=== PATIENT | male | born 1965 | race Two or more races ===

== ENCOUNTER 2016-12-09 00:19 | Emergency (ER) | payer MEDICARE, OTHER ==
--- NOTE | 2016-12-09 00:25 | PDOC ---
History of Present Illness - General History Source: Patient Exam Limitations: No Limitations - History of Present Illness Initial Comments: 12/09/16 01:12 The patient is a 50-year-old male, with a significant past medical history of asthma, hypertension, hypercholesterolemia, who presents to the emergency department complaining of chest pain that began today (3 hours ago). The patient describes the pain as constant and sharp in nature. He reports generalized weakness in his left arm and discomfort in left shoulder. He reports associated palpitations, but denies diaphoresis and SOB. The patient states that upon onset of symptoms he feels dizzy and his vision is obscured. He states he also feels a tingling sensation on the right side of his chest. He reports a cough for 1-2 days and denies fever, chills, and headache. He reports recent contact with someone with the flu. Allergies: None reported. Past Surgical History: Lung resection Social History: Non-smoker. Denies alcohol or drug use. <Bridger Bullock - Last Filed: 12/09/16 02:09> <Joelle Burnett - Last Filed: 12/09/16 06:20> - General Stated Complaint: DIZZINESS, PALPITATIONS Time Seen by Provider: 12/09/16 00:24 Past History <Bridger Bullock - Last Filed: 12/09/16 02:09> - Past Medical History Asthma: Yes COPD: Yes Diabetes: No HTN: Yes Hypercholesterolemia: Yes - Surgical History Lung Surgery: Yes (rigth lung surgery removed a piece??) - Psycho/Social/Smoking Cessation Hx Anxiety: No Suicidal Ideation: No Smoking History: Former smoker Have you smoked in the past 12 months: No Number of Cigarettes Smoked Daily: 0 If you are a former smoker, when did you quit?: 10 YRS Hx Alcohol Use: Yes (SOCIAL) Drug/Substance Use Hx: No Substance Use Type: None Hx Substance Use Treatment: No <Joelle Burnett - Last Filed: 12/09/16 06:20> - Past Medical History Allergies/Adverse Reactions: Allergies Allergy/AdvReac Type Severity Reaction Status Date / Time No Known Allergies Allergy Verified 12/09/16 00:28 Home Medications: Ambulatory Orders Albuterol Sulfate Inhaler - [Ventolin HFA Inhaler -] 1 - 2 inh PO QID PRN Aspirin [Karan Chewable] 81 mg PO DAILY 12/09/16 Diltiazem HCl [Cartia Xt] 120 mg PO DAILY 12/09/16 Review of Systems - Review of Systems Able to Perform ROS?: Yes Comments:: 12/09/16 01:12 GENERAL/CONSTITUTIONAL: No fever or chills. HEAD, EYES, EARS, NOSE AND THROAT: +Change in vision. No ear pain or discharge. No sore throat. CARDIOVASCULAR: +Chest pain. No shortness of breath. RESPIRATORY: No cough, wheezing, or hemoptysis. GASTROINTESTINAL: No nausea, vomiting, diarrhea or constipation. GENITOURINARY: No dysuria, frequency, or change in urination. MUSCULOSKELETAL: +Discomfort in left shoulder. +Weakness in left arm. No joint or muscle swelling. No neck or back pain. SKIN: No rash NEUROLOGIC: No headache, vertigo, loss of consciousness, or change in strength/ sensation. ENDOCRINE: No increased thirst. No abnormal weight change. HEMATOLOGIC/LYMPHATIC: No anemia, easy bleeding, or history of blood clots. ALLERGIC/IMMUNOLOGIC: No hives or skin allergy. <Bridger Bullock - Last Filed: 12/09/16 02:09> *Physical Exam - Vital Signs Last Vital Signs Temp Pulse Resp BP Pulse Ox 97.9 F 131 H 21 104/72 96 12/09/16 00:28 12/09/16 00:28 12/09/16 00:28 12/09/16 00:28 12/09/16 00:28 - Physical Exam Comments: 12/09/16 01:13 GENERAL: The patient is awake, alert, and fully oriented, in no acute distress. HEAD: Normal with no signs of trauma. EYES: Pupils equal, round and reactive to light, extraoccular movements intact, sclera anticteric, conjunctiva clear with no pallor. ENT: Ears normal, nares patent, oropharynx clear without exudates. Moist mucous membranes. NECK: Normal range of motion, supple without lymphadenopathy, JVD, or masses. LUNGS: Breath sounds equal, clear to auscultation bilaterally. No wheeze/ crackles. HEART: +Irregular rate (Atrial fibrillation). Normal S1 and S2 without murmur or rub. ABDOMEN: Soft/nontender/nondistended. BS wnl. No guarding or rebound. No palpable masses. No hepatosplenomegaly. EXTREMITIES: Normal range of motion, no edema. No clubbing or cyanosis. No cords, erythema, or tenderness. NEUROLOGICAL: Cranial nerves II through XII grossly intact. Normal speech, normal gait. PSYCH: Normal mood, normal affect. SKIN: +Old scar on posterior left back from lung resection. Warm, Dry, normal turgor, or no rashes noted. <Bridger Bullock - Last Filed: 12/09/16 02:09> ED Treatment Course - LABORATORY CBC & Chemistry Diagram: 12/09/16 00:40 12/09/16 00:40 - ADDITIONAL ORDERS Additional order review: Laboratory Results 12/09/16 00:40 INR 1.12 12/09/16 00:40 RBC 5.43 MCV 83.0 MCHC 33.2 RDW 13.7 MPV 9.2 Neutrophils % 56.4 Lymphocytes % 31.8 D Monocytes % 7.7 Eosinophils % 3.2 Basophils % 0.9 - Medications Given in the ED: ED Medications Discontinued Medications Generic Name Dose Route Start Last Admin Trade Name Cj PRN Reason Stop Dose Admin Diltiazem HCl 10 mg 12/09/16 00:45 12/09/16 00:45 Cardizem Injection - IVPUSH 12/09/16 00:46 10 mg NOW ONE Administration <Bridger Bullock - Last Filed: 12/09/16 02:09> - LABORATORY CBC & Chemistry Diagram: 12/09/16 00:40 12/09/16 00:40 <Joelle Burnett - Last Filed: 12/09/16 06:20> Medical Decision Making - Medical Decision Making 12/09/16 02:[address] King at 02:05. <Bridger Bullock - Last Filed: 12/09/16 02:09> - Medical Decision Making 12/09/16 01:54 Patient Name: Giovany Cmobs THIS IS A PRELIMINARYREPORT FROM IMAGING GALLERY DIRECTOR EXAM: CT brain without contrast IMAGES: 70 EXAM DATE AND TIME: 2016-12-09 01:33:12.0 REASON FOR EXAM: Left shoulder Fatigue COMPARISON: No FINDINGS: Normal brain. No acute intracranial abnormality. No bleed. No visible infarct or mass. THIS DOCUMENT HAS BEEN ELECTRONICALLY SIGNED 12/09/16 01:57 Pt's labs are normal. HR came down to the 70s. He is still in afib and he will be sent home with aspirin and dilt. I spoke to cardiology steam bone press tender Dr. Yang who agrees that given pt's low CHADS score, it is reasonable that pt not be placed on coumadin if he is unwilling to follow his blood tests and follow up with cardiology. 12/09/16 02:19 Pt has been asked to follow with [facility] where he has an appointment that had been previously scheduled for later this month. 12/09/16 06:16 Pt came with rapid afib. He is being treated by a cardiology PA at [facility] with Diltiazem 120mg daily. He takes the meds. Pt refuses blood thinners as he feels he cant afford the meds and the lab hecks that come with coumadin. He was previously found to be CHADS2 score of 1 and as a result at low risk for stroke, which is compatible with asa therapy to inactivate platelets and reduce clotting. Pt's labs are normal in the ER and his head CT also doesn't demonstrate any findings, he states that he gets obscure vision whenever he palpitates and he feels left arm pain and generalized fatigue. Pt asked to follow at the cardioclinics at [facility] as previously scheduled. Stable for d/c home with his . 12/09/16 06:20 EKG1: rapid afib HR 131bpm EKG2: afib HR 69 bpm <Joelle Burnett - Last Filed: 12/09/16 06:20> *DC/Admit/Observation/Transfer - Attestations Scribe Attestion: 12/09/16 01:13 Documentation prepared by Bridger Bullock, acting as biomedical electronics technician for Joelle Burnett MD. <Bridger Bullock - Last Filed: 12/09/16 02:09> - Discharge Dispostion Admit: No <Joelle Burnett - Last Filed: 12/09/16 06:20> Diagnosis at time of Disposition: Rapid atrial fibrillation - Discharge Dispostion Disposition: HOME Condition at time of disposition: Stable - Referrals Referrals: STAFF,NOT ON [Primary Care Provider] - - Patient Instructions Printed Discharge Instructions: DI for Arrhythmias, DI for Atrial Fibrillation
[2016-12-09 00:29] VITALS: TEMP 97.9; BMI 31.3
[2016-12-09] MEDS ORDERED: dilTIAZem HCL 50 MG/10 ML - 10 ML VIAL ONE (00:39)
[2016-12-09] MEDS ORDERED: dilTIAZem HCL 50 MG/10 ML - 10 ML VIAL IVPUSH ONE (00:45)
[2016-12-09 00:48] LABS: BASOPHIL 0.9 % (0-2.0); EOSINOPHIL 3.2 % (0-4.5); MCH 27.5 pg (25.7-33.7); MCHC 33.2 g/dl (32.0-35.9); MEAN PLT VOLUME 9.2 fl (7.5-11.1); NEUTROPHILS 56.4 % (42.8-82.8); PLATELET COUNT 245 K/MM3 (134-434); RDW 13.7 % (11.9-15.9)
[2016-12-09 01:07] LABS: INR 1.12 (0.82-1.09); PROTHROMBIN TIME (PATIENT) 12.4 SEC (9.98-11.88)
[2016-12-09 01:10] LABS: ALBUMIN 4.4 g/dl (3.4-5.0); BILIRUBIN,TOTAL 0.5 mg/dL (0.2-1.0); CALCIUM 9.2 mg/dL (8.5-10.1); CREATININE 1.4 mg/dL (0.7-1.3); TOT PROT 8.1 g/dl (6.4-8.2)
[2016-12-09 01:13] LABS: TROPONIN I 0.02 ng/ml (0.00-0.05)
[2016-12-09] MEDS ORDERED: SODIUM CHLORIDE 0.9% 1000 ML INFUS.BAG IV ONE (01:24)
[2016-12-09] MEDS ORDERED: SODIUM CHLORIDE 0.9% 500 ML INFUS.BAG IV ONE (01:55)
[2016-12-09] MEDS ORDERED: dilTIAZem HCL 60 MG TABLET (FP) PO ONE ×2 (02:07→02:19)
[2016-12-09] MEDS ORDERED: dilTIAZem HCL 60 MG TABLET (FP) ONE (02:35)
[2016-12-09 02:43] VITALS: BP 111/91; PULSE 73
--- NOTE | 2016-12-09 11:24 | EKG ---
Test Reason : Blood Pressure : / mmHG Vent. Rate : 131 BPM Atrial Rate : 187 BPM P-R Int : 000 ms QRS Dur : 090 ms QT Int : 316 ms P-R-T Axes : 000 056 -24 degrees QTc Int : 466 ms ATRIAL FIBRILLATION WITH RAPID VENTRICULAR RESPONSE MINIMAL VOLTAGE CRITERIA FOR LVH, MAY BE NORMAL VARIANT NONSPECIFIC T WAVE ABNORMALITY ABNORMAL ECG WHEN COMPARED WITH ECG OF 31-OCT-2016 14:49, VENT. RATE HAS INCREASED BY 46 BPM Confirmed by KIM SHEN MD ([id number]) on 12/09/2016 11:23:59 AM Referred By: Confirmed By:KIM SHEN MD
--- NOTE | 2016-12-09 23:53 | EKG ---
Test Reason : Blood Pressure : / mmHG Vent. Rate : 069 BPM Atrial Rate : 187 BPM P-R Int : 000 ms QRS Dur : 092 ms QT Int : 386 ms P-R-T Axes : 000 056 013 degrees QTc Int : 413 ms ATRIAL FIBRILLATION NONSPECIFIC T WAVE ABNORMALITY ABNORMAL ECG WHEN COMPARED WITH ECG OF 09-DEC-2016 00:26, VENT. RATE HAS DECREASED BY 62 BPM Confirmed by KIM SHEN MD ([id number]) on 12/09/2016 11:53:12 PM Referred By: Confirmed By:KIM SHEN MD
== END 2016-12-09 02:44 | disposition home or self-care (01) ==
LOC: JER 00:19
PROC: 3E033GC Introduction of Other Therapeutic Substance into Peripheral Vein, Percutaneous Approach (ICD-10-PCS; principal; 2016-12-09)
DX: I48.91 Unspecified atrial fibrillation (principal); I10 Essential (primary) hypertension; E78.00 Pure hypercholesterolemia, unspecified; J44.9 Chronic obstructive pulmonary disease, unspecified; J45.909 Unspecified asthma, uncomplicated
CPT/HCPCS: 36415; 70450-TC; 71010-TC; 80053; 82550; 82553; 84484; 85025; 85610; 93005; 93010; 99284-25

== ENCOUNTER 2017-02-05 09:19 | Inpatient (IN) | payer OTHER ==
--- NOTE | 2017-02-05 09:33 | PDOC ---
History of Present Illness - General History Source: Patient Exam Limitations: No Limitations - History of Present Illness Initial Comments: 02/05/17 09:53 The patient is a 51 year old male, with a significant past medical history of asthma, HTN, COPD, a-fib, and hypercholesterolemia, who presents to the emergency department with SOB and right sided chest pain for about an hour. He reports waking up with the sudden onset of chest pain. He describes his pain as sharp, ranking his pain a 10/10 in pain intensity. He reports having this pain a week ago and going to [facility] ER where he had a chest tube put in for 24 hours. He reports since his discharge feeling his normal baseline, until this morning when he developed chest pain. He denies having a pulmonary doctor that he visits regularly. He denies any recent fevers, chills, headache or dizziness. He denies any recent nausea, vomit, diarrhea or constipation. He denies any recent dysuria, frequency, urgency or hematuria. Allergies: NKA Past surgical history: Right lung resection (secondary to COPD exacerbation 2008 ). Social History: Former smoker. Social EtOH and denies drug use. PCP: Not on Staff. <Juan Pablo Jeffery - Last Filed: 02/05/17 12:36> - General History Source: Patient Exam Limitations: No Limitations <Sue Noonan - Last Filed: 02/06/17 19:27> - General Chief Complaint: Shortness of Breath Stated Complaint: Shortness of Breath Time Seen by Provider: 02/05/17 09:28 Past History <Juan Pablo Jeffery - Last Filed: 02/05/17 12:36> - Past Medical History Asthma: Yes Cardiac Disorders: Yes (a fib) COPD: Yes Diabetes: No HTN: Yes Hypercholesterolemia: Yes - Surgical History Lung Surgery: Yes (rigth lung surgery removed a piece??) - Psycho/Social/Smoking Cessation Hx Anxiety: No Suicidal Ideation: No Smoking History: Former smoker Have you smoked in the past 12 months: No Number of Cigarettes Smoked Daily: 0 If you are a former smoker, when did you quit?: 10 YRS Hx Alcohol Use: Yes (SOCIAL) Drug/Substance Use Hx: No Substance Use Type: None Hx Substance Use Treatment: No <Sue Noonan - Last Filed: 02/06/17 19:27> - Past Medical History Allergies/Adverse Reactions: Allergies Allergy/AdvReac Type Severity Reaction Status Date / Time No Known Allergies Allergy Verified 02/05/17 09:53 Home Medications: Ambulatory Orders Albuterol Sulfate Inhaler - [Ventolin HFA Inhaler -] 1 - 2 inh PO QID PRN Aspirin [Karan Chewable] 81 mg PO DAILY 12/09/16 Diltiazem HCl [Cartia Xt] 120 mg PO DAILY 12/09/16 Apixaban [Eliquis -] 5 mg PO BID 02/05/17 Review of Systems - Review of Systems Able to Perform ROS?: Yes Comments:: 02/05/17 09:51 GENERAL/CONSTITUTIONAL: No: fever, chills, weakness, loss of appetite. HEAD, EYES, EARS, NOSE AND THROAT: No: change in vision, ear pain, discharge, sore throat, throat swelling. CARDIOVASCULAR:+chest pain. No: lightheadedness, palpitations, syncope RESPIRATORY: +SOB. No: cough, wheezing, hemoptysis, stridor. GASTROINTESTINAL: No: nausea, vomiting, diarrhea, abdominal cramping, rectal bleeding, constipation. GENITOURINARY: No: dysuria, hematuria, frequency, urgency, flank pain. MUSCULOSKELETAL: No: back pain, neck pain, joint pain, muscle swelling or pain SKIN : No: lesions, pallor, rash or easy bruising. NEUROLOGIC: No: headache, vertigo, paresthesias, weakness ENDOCRINE: No: unexplained weight gain or loss HEMATOLOGIC/LYMPHATIC: No: anemia, easy bleeding, swelling nodes. <Juan Pablo Jeffery - Last Filed: 02/05/17 12:36> *Physical Exam - Physical Exam Comments: 02/05/17 09:52 GENERAL: The patient is in no acute distress. HEAD: Normal with no signs of trauma. EYES: PERRLA, EOMI, sclera anicteric, conjunctiva clear. ENT: Ears normal, nares patent, oropharynx clear without exudates. Moist mucous membranes. NECK: Normal range of motion, supple without lymphadenopathy, JVD, or masses. LUNGS: +tachypneic. Decreased breath sounds right side. No wheezes, and no crackles. HEART: Regular rate and rhythm, normal S1 and S2 without murmur, rub or gallop. ABDOMEN: Soft, nontender, normoactive bowel sounds. No guarding, no rebound. No masses palpable. EXTREMITIES: Normal range of motion, no edema. No clubbing or cyanosis. No erythema, or tenderness. NEUROLOGICAL: Cranial nerves II through XII grossly intact. Normal speech. No focal neurological deficits. MUSCULOSKELETAL: Back non-tender to palpation, no CVA tenderness SKIN: Warm, Dry, normal turgor, no rashes or lesions noted. <Juan Pablo Jeffery - Last Filed: 02/05/17 12:36> Heart Score/ECG Review #1 ECG reviewed & interpreted by me at: 10:06 02/05/17 10:06 Twelve-lead EKG was performed and reviewed by me. There is normal sinus rhythm with a normal rate of 80 bpm. The axis is normal. The intervals are normal - pr : 154ms, QRS:84ms, QTc:422ms. There are no ST elevations or depressions. T wave inversion III, aVF, v3-v4 <Sue Noonan - Last Filed: 02/06/17 19:27> ED Treatment Course - LABORATORY CBC & Chemistry Diagram: 02/05/17 09:55 02/05/17 09:55 - RADIOLOGY Radiograph Interpretation: 02/05/17 10:54 CHEST X-RAY impressions reported by : Increased interstitial markings bilaterally which have chronicity based on correlation to old studies, no pleural effusion or pneumothorax is seen. Clinical correlation. No superimposed acute pneumonia or edema identified, clinical correlation for history of interstitial fibrosis. 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 No pleural effusion. There are no signs of right heart strain. PE is demonstrated in the right main pulmonary artery and extending into the segemental and subsegmntal branch vessels which are occluded, there are bronchial artery collateral vessels identified. <Juan Pablo Jeffery - Last Filed: 02/05/17 12:36> - LABORATORY CBC & Chemistry Diagram: 02/05/17 09:55 02/05/17 09:55 <Sue Noonan - Last Filed: 02/06/17 19:27> Medical Decision Making - Medical Decision Making 02/05/17 11:45 Call made to , awaiting call back. 02/05/17 11:46 Call back from , case discussed. <Juan Pablo Jeffery - Last Filed: 02/05/17 12:36> - Critical Care Time Total Critical Care Time (minutes): 60 Critical Care Statement: The care of this patient involved high complexity decision making to prevent further life threatening deterioration of the patient 's condition and/or to evalute & treat vital organ system(s) failure or risk of failure. - Medical Decision Making 02/05/17 09:33 A portion of this note was documented by scribe services under my direction. I have reviewed the details of the note, within reason, and agree with the documentation with the following case summary and management plan written by me. Nursing documentation reviewed and incorporated into medical decision making 02/05/17 09:57 This is a 51-year-old male with a history of hypertension, hyperlipidemia, likely paroxysmal A. fib? According to chart), history of COPD s/p right lung resection in 2008 for COPD, h/o pneumothorax last week, s/p pigtail cathether at [facility], told that he might need a valve? Pt awoke with severe right sided chest pain, difficulty taking a deep breath No cough No fevers or chills No back pain No recent travel No chest wall trauma No left sided chest pain Pt states he was discharged from the hospital 5 days ago and had felt well up until this morning On examination Right lower chest pain Decreased breath sounds right side No abdominal tenderness Will do: Portable chest x ray Will do basic labs Will place on O2 Will give moprhine for pain 02/05/17 10:07 CXR: pneumothorax, air at the base of the lung cavity 02/05/17 11:[address] Shah who reviewed pt CT Likely loculated pneumothorax Pt continues to have pain 02/05/17 11:56 02/05/17 11:57 Laboratory Tests 02/05/17 02/05/17 02/05/17 09:20 09:55 09:55 WBC 8.0 Hgb 13.9 Hct 40.6 Plt Count 179 D Neutrophils % 51.8 Lymphocytes % 36.7 INR 1.20 H BUN 21 H Creatinine 1.0 D Creatine Kinase 107 Troponin I < 0.02 CT demonstrates Right pulmonary embolism Pt is on Eliquis which he states he has been taking Pt given dilaudid 0.5 for pain Pt seen in the ER by Dr. Shah Pt would be better served at [facility] given his complicated pulmonary history and his recent surgery? Pt was discharged on NOAC Will start heparin, no bolus Will continue to monitor closely clinical impression: PULMONARY EMBOLISM <Sue Noonan - Last Filed: 02/06/17 19:27> *DC/Admit/Observation/Transfer - Attestations Scribe Attestion: 02/05/17 09:51 Documentation prepared by Juan Pablo Jeffery, acting as medical collections representative for Sue Noonan MD. <Juan Pablo Jeffery - Last Filed: 02/05/17 12:36> - Discharge Dispostion Admit: Yes <Sue Noonan - Last Filed: 02/06/17 19:27> Diagnosis at time of Disposition: SOB (shortness of breath), Pulmonary embolism Chest pain Qualifiers: Chest pain type: other chest pain Qualified Code(s): R07.89 - Other chest pain - Discharge Dispostion Disposition: TRANSFER ACUTE CARE/OTHER HOSP Condition at time of disposition: Fair
[2017-02-05 09:53] VITALS: BMI 31.0
[2017-02-05] MEDS ORDERED: morphine CARPU-JECT 4 MG/1 ML DISP.SYRIN IVPUSH ONE (09:53)
[2017-02-05 10:09] LABS: MCH 28.6 pg (25.7-33.7); MCHC 34.1 g/dl (32.0-35.9); MEAN CELL VOLUME 83.9 fl (80-96); MEAN PLT VOLUME 9.5 fl (7.5-11.1); NEUTROPHILS 51.8 % (42.8-82.8); PLATELET COUNT 179 K/MM3 (134-434); RDW 13.8 % (11.9-15.9)
[2017-02-05] MEDS ORDERED: morphine CARPU-JECT 4 MG/1 ML DISP.SYRIN ONE (10:09)
[2017-02-05 10:29] LABS: ALBUMIN 4.1 g/dl (3.4-5.0); ANION GAP 6 (8-16); BILIRUBIN,TOTAL 0.4 mg/dL (0.2-1.0); CALCIUM 8.9 mg/dL (8.5-10.1); CO2 30 mmol/L (21-32); GLUCOSE,RANDOM 99 mg/dL (74-106); SGOT/AST 16 U/L (15-37); SGPT/ALT 29 U/L (12-78); TOT PROT 7.7 g/dl (6.4-8.2)
[2017-02-05 10:31] LABS: ALK PHOS 89 U/L (45-117); TROPONIN I < 0.02 ng/ml (0.00-0.05)
[2017-02-05 11:02] LABS: INR 1.2 (0.82-1.09); PROTHROMBIN TIME (PATIENT) 13.2 SEC (9.98-11.88)
--- NOTE | 2017-02-05 11:04 | EKG ---
Test Reason : Blood Pressure : / mmHG Vent. Rate : 080 BPM Atrial Rate : 080 BPM P-R Int : 154 ms QRS Dur : 084 ms QT Int : 366 ms P-R-T Axes : 051 058 -16 degrees QTc Int : 422 ms NORMAL SINUS RHYTHM NONSPECIFIC T WAVE ABNORMALITY ABNORMAL ECG WHEN COMPARED WITH ECG OF 09-DEC-2016 02:20, SINUS RHYTHM HAS REPLACED ATRIAL FIBRILLATION Confirmed by ROXANA DIAZ MD ([id number]) on 02/05/2017 11:03:39 AM Referred By: Confirmed By:ROXANA DIAZ MD
[2017-02-05] MEDS ORDERED: HYDROmorphone HCL CARPU-JECT 1 MG/1 ML DISP.SYRIN IVPB ONE ×2 (11:55→16:37)
[2017-02-05] MEDS ORDERED: HYDROmorphone HCL CARPU-JECT 1 MG/1 ML DISP.SYRIN ONE ×2 (12:05→16:49)
--- NOTE | 2017-02-05 13:21 | PDOC ---
ED Treatment Course - LABORATORY CBC & Chemistry Diagram: 02/05/17 09:55 02/05/17 09:55 - ADDITIONAL ORDERS Additional order review: Laboratory Results 02/05/17 02/05/17 02/05/17 09:55 09:20 09:20 INR 1.20 H Sodium 142 Potassium 3.6 Chloride 106 Carbon Dioxide 30 Anion Gap 6 L BUN 21 H Creatinine 1.0 D Creat Clearance w eGFR > 60 Random Glucose 99 D Calcium 8.9 Total Bilirubin 0.4 AST 16 ALT 29 Alkaline Phosphatase 89 Creatine Kinase 107 Troponin I < 0.02 Total Protein 7.7 Albumin 4.1 Blood Type A NEGATIVE Antibody Screen Negative 02/05/17 09:55 RBC 4.85 MCV 83.9 MCHC 34.1 RDW 13.8 MPV 9.5 Neutrophils % 51.8 Lymphocytes % 36.7 Monocytes % 7.5 Eosinophils % 3.0 Basophils % 1.0 - RADIOLOGY Radiology Studies Ordered: Category Date Time Status CHEST CTA [CT] Stat CT Scan 02/05/17 10:50 Completed CHEST X-RAY PORTABLE* [RAD] Stat Radiology 02/05/17 09:42 Completed - Medications Given in the ED: ED Medications Discontinued Medications Generic Name Dose Route Start Last Admin Trade Name Freq PRN Reason Stop Dose Admin Hydromorphone HCl 0.5 mg 02/05/17 11:55 02/05/17 12:06 Dilaudid Injection - IVPB 02/05/17 11:56 0.5 mg NOW ONE Administration Morphine Sulfate 4 mg 02/05/17 09:53 02/05/17 10:10 Morphine Injection - IVPUSH 02/05/17 09:54 4 mg ONCE ONE Administration Medical Decision Making - Medical Decision Making 02/05/17 13:18 Will transfer pt to [facility] Case reviewed with Dr. Pineda Pt transfer to [facility] telemetry Will keep on showcase trimmer *DC/Admit/Observation/Transfer Diagnosis at time of Disposition: SOB (shortness of breath), Pulmonary embolism Chest pain Qualifiers: Chest pain type: other chest pain Qualified Code(s): R07.89 - Other chest pain - Discharge Dispostion Disposition: TRANSFER ACUTE CARE/OTHER HOSP Condition at time of disposition: Fair - Transfer to Acute Care Facility Receiving Facility: [facility]
--- NOTE | 2017-02-05 13:36 | CON.PULM ---
Consult Consult Specialty:: PULM/CCM Referred by:: ER Reason for Consultation:: Abnormal CT chest - History of Present Illness Chief Complaint: Right sided CP / SOB History of Present Illness: 51 M, significant past medical history of (?) asthma, (?) COPD, HTN, AFib on Coumadin, and HPL. Patient was admitted to [facility] in 2008. He had a right thoracotomy with lung resection. He was told that he had severe COPD. Last Saturday he was admitted to [facility] for SOB and right sided chest discomfort. He had a right ACW chest tube placed. He was just discharged last . Returns for SOB and right CP. CT: Extensive fibrosis and possible loculated PTX on the right. A PE is noted as well. Patient is currently hemodynamically stable and O2 saturation is 95% on supplemental NC. - History Source History Provided By: Patient Limitations to Obtaining History: No Limitations - Past Medical History Cardio/Vascular: Yes: HTN, Hyperlipdemia Pulmonary: Yes: Asthma, COPD, Other (partial lung resection for infection) - Alcohol/Substance Use Hx Alcohol Use: Yes (SOCIAL) - Smoking History Smoking history: Former smoker Have you smoked in the past 12 months: No Aproximately how many cigarettes per day: 0 If you are a former smoker, when did you quit?: 10 YRS - Social History ADL: Independent History of Recent Travel: No Home Medications - Allergies Allergies/Adverse Reactions: Allergies Allergy/AdvReac Type Severity Reaction Status Date / Time No Known Allergies Allergy Verified 02/05/17 09:53 - Home Medications Home Medications: Ambulatory Orders Albuterol Sulfate Inhaler - [Ventolin HFA Inhaler -] 1 - 2 inh PO QID PRN Aspirin [Karan Chewable] 81 mg PO DAILY 12/09/16 Diltiazem HCl [Cartia Xt] 120 mg PO DAILY 12/09/16 Apixaban [Eliquis -] 5 mg PO BID 02/05/17 Physical Exam Vital Sings: Vital Signs Temperature 98.6 F 02/05/17 12:00 Pulse Rate 80 02/05/17 12:00 Respiratory Rate 22 02/05/17 12:00 Blood Pressure 137/96 02/05/17 12:00 O2 Sat by Pulse Oximetry (%) 100 02/05/17 12:00
[2017-02-05] MEDS ORDERED: HEPARIN - 25,000 UNIT in SODIUM CHLORIDE 495 ML IV SCH (13:45)
--- NOTE | 2017-02-05 13:49 | CONSULT ---
Consultation: REQUESTING PROVIDER: CONSULT REQUEST: We have been asked to medically evaluate this patient for sob, chest pain. HISTORY OF PRESENT ILLNESS: This is a 51 yo M with PMH of COPD s/p partial R lung resection 2008 due to exacerbation, asthma, a-fib on eliquis, HLD and HTN, who presents with sudden onset of 10/10 sharp R sided chest pain and sob this AM as he woke up. He had the same exact symptoms last Saturday, at which time he was hospitalized in [facility] until , during which time he was found to have a pneumo and had a R sided pigtail placed for 5 days. It was removed 5 hours before his d/c last at which time patient felt at his baseline. He continued to feel well until this morning. He has a scheduled apt with his paleontologist from [facility] this Sat. According to patient, he was told that most likely his lung will recollapse and then he will require a valve placed. Patient is a past smoker but only smoked 3 cig/day for a few years. He doesnt know whether he was tested fro alpha antitrypsin deficiency but he denies family history of pulmonary disease. 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 At baseline he does not use supplemental O2. He denies hemoptysis, LE pain or edema. He denies abd pain, diarrhea or dysuria. REVIEW OF SYSTEMS: CONSTITUTIONAL: Absent: fever, chills, malaise, loss of appetite, weight change HEENT: Absent: rhinorrhea, nasal congestion, throat pain, visual changes CARDIOVASCULAR: Absent: syncope, palpitations, lightheadedness, peripheral edema RESPIRATORY: Absent: orthopnea, wheezing, stridor, hemoptysis GASTROINTESTINAL: Absent: abdominal pain, abdominal distension, nausea, vomiting, diarrhea GENITOURINARY: Absent: dysuria MUSCULOSKELETAL: Absent: myalgia, arthralgia SKIN: Absent: rash, itching, pallor HEMATOLOGIC/IMMUNOLOGIC: Absent: frequent infections ENDOCRINE: Absent: heat intolerance, cold intolerance NEUROLOGIC: Absent: headache, focal weakness or paresthesias PSYCHIATRIC: Absent: anxiety, depression PHYSICAL EXAMINATION Vital Signs - 24 hr 02/05/17 12:00 Temperature 98.6 F Pulse Rate [ 80 Left Radial] Respiratory 22 Rate Blood Pressure 137/96 [Right Arm] O2 Sat by Pulse 100 Oximetry (%) GENERAL: Awake, alert, and fully oriented, in no acute distress. HEAD: Normal with no signs of trauma. EYES: Pupils equal, round and reactive to light, extraocular movements intact, sclera anicteric, conjunctiva clear. EARS, NOSE, THROAT: Moist mucous membranes. NECK:supple without JVD LUNGS: R lung absent breath sounds except for peribronchial middle segment, L lung crackles HEART: Regular rate and rhythm, normal S1 and S2 ABDOMEN: Soft, nontender, not distended, normoactive bowel sounds MUSCULOSKELETAL: No CVA tenderness. UPPER EXTREMITIES: 2+ pulses, No peripheral edema. LOWER EXTREMITIES: 2+ pulses, No calf tenderness. No peripheral edema. NEUROLOGICAL: Cranial nerves II-XII grossly intact. Normal speech. PSYCHIATRIC: Cooperative. Good eye contact. Appropriate mood and affect. SKIN: Warm, dry ASSESSMENT/PLAN: This is a 51 yo M with PMH of COPD s/p partial R lung resection 2008 due to exacerbation, asthma, a-fib on eliquis, HLD and HTN, who presents with sudden onset of 10/10 sharp R sided chest pain and sob this AM as he woke up. in [facility] 1 w ago due to R pneumothorax, pig tail placed/removed. Acute respiratory distress -possible PE, nontension Pneumothorax vs large air blebs -CXR shows new R sided pneumo vs large bleb (deep sulcus sign), not present in december -CTA chest show subacute large R pulm artery embolish vs collapsed artery, large R sided pulmonary blebs vs pneumo with lung adhesions to lim, multiple smaller L sided blebs. -hemodynamically stable -EKG nonspecific ST changes -pain controlled -recommend emergent transfer to [facility]/contact pulm and CT surgery team previously involved with patient. -Recommend VATS -recommend genetic workup including alpha 1 antitrypsin -supplemental O2 A fib -continue eliquis HTN -continue home meds HLD -continue home meds Dispo: We will continue to follow the patient. Thank you for this consultative opportunity. Problem List - Problems (1) Chest pain Code(s): R07.9 - CHEST PAIN, UNSPECIFIED Qualifiers: Chest pain type: other chest pain Qualified Code(s): R07.89 - Other chest pain; R07.8 - Other chest pain (2) Pulmonary embolism Code(s): I26.99 - OTHER PULMONARY EMBOLISM WITHOUT ACUTE COR PULMONALE (3) SOB (shortness of breath) Code(s): R06.02 - SHORTNESS OF BREATH (4) Rapid atrial fibrillation Code(s): I48.91 - UNSPECIFIED ATRIAL FIBRILLATION (5) HLD (hyperlipidemia) Code(s): E78.5 - HYPERLIPIDEMIA, UNSPECIFIED (6) HTN (hypertension) Code(s): I10 - ESSENTIAL (PRIMARY) HYPERTENSION (7) Interstitial lung disease Code(s): J84.9 - INTERSTITIAL PULMONARY DISEASE, UNSPECIFIED (8) COPD (chronic obstructive pulmonary disease) Code(s): J44.9 - CHRONIC OBSTRUCTIVE PULMONARY DISEASE, UNSPECIFIED (9) Pneumothorax Code(s): J93.9 - PNEUMOTHORAX, UNSPECIFIED Visit type - Emergency Visit Emergency Visit: Yes ED Registration Date: 02/05/17 Care time: The patient presented to the Emergency Department on the above date and was hospitalized for further evaluation of their emergent condition. - New Patient This patient is new to me today: Yes Date on this admission: 02/05/17 - Critical Care Critical Care patient: No
[2017-02-05] MEDS ORDERED: HEPARIN INFUSION - 500 ML IVPB ONE (14:21)
[2017-02-05 16:03] VITALS: TEMP 98.1
[2017-02-05 18:04] VITALS: BP 149/107; PULSE 88
== END 2017-02-05 18:19 | disposition short-term general hospital (02) | DRG 134 ==
LOC: JER 09:19 → JERBED 11:58
PROVIDERS: ADMIT Internal Medicine; ATTEND Internal Medicine
DX: I26.99 Other pulmonary embolism without acute cor pulmonale (principal); J45.909 Unspecified asthma, uncomplicated; I10 Essential (primary) hypertension; E78.00 Pure hypercholesterolemia, unspecified; J44.9 Chronic obstructive pulmonary disease, unspecified; Z87.891 Personal history of nicotine dependence; J84.9 Interstitial pulmonary disease, unspecified; R07.89 Other chest pain; J93.9 Pneumothorax, unspecified
CPT/HCPCS: 36415; 71010-TC; 71275-TC; 80053; 82550; 84484; 85025; 85610; 85730; 86850; 86900; 86901; 93005; 93010; 99285-25; J1644